=== PATIENT | female | born 1970 | race Hispanic/Latino ===

== ENCOUNTER 2016-06-28 23:02 | Emergency (ER) | payer SELFPAY ==
[2016-06-28 23:11] VITALS: BP 119/76; PULSE 86; TEMP 97.6; O2SAT 99
--- NOTE | 2016-06-29 00:24 | C.PDOC ---
History Of Present Illness The patient, a 45 y/o female, presents to the ED for evaluation of left foot pain after she sustained a fall earlier today. Patient states she accidentally tripped and fell after stepping on an uneven crack on the sidewalk and twisted her left foot. Patient states she was able to limp and go home afterwards. At home, patient attempted to elevate her leg and apply ice to the affected area but her pain persisted and she now presents to the ED for further evaluation. She denies head injury, LOC, extremity numbness/weakness. Time Seen by Provider: 06/28/16 23:24 Chief Complaint (Nursing): Lower Extremity Problem/Injury History Per: Patient History/Exam Limitations: no limitations Onset/Duration Of Symptoms: Hrs Current Symptoms Are (Timing): Still Present Additional History Per: Patient - Knee Description Of Injury: Fell, Twisted. denies: Struck With Object, Struck Against Object Past Medical History Reviewed: Historical Data, Nursing Documentation, Vital Signs Vital Signs: Last Vital Signs Temp 97.6 F 06/28/16 23:06 Pulse 86 06/28/16 23:06 Resp 20 06/29/16 00:41 BP 119/76 06/28/16 23:06 Pulse Ox 99 06/29/16 04:25 - Medical History PMH: Hypothyroidism Surgical History: No Surg Hx Family History: States: Unknown Family Hx - Social History Hx Alcohol Use: Yes Hx Substance Use: No - Immunization History Hx Influenza Vaccination: No Hx Pneumococcal Vaccination: No Review Of Systems Except As Marked, All Systems Reviewed And Found Negative. Musculoskeletal: Positive for: Foot Pain (left ) Neurological: Negative for: Weakness, Numbness, Other (no LOC, no head injury ) Physical Exam - Physical Exam Appears: Non-toxic, No Acute Distress Skin: Warm, Dry, Ecchymosis (lateral aspect of left foot ) Head: Atraumatic, Normacephalic Eye(s): bilateral: Normal Inspection, EOMI Chest: Symmetrical, No Tenderness Back: Normal Inspection, No Paraspinal Tenderness Extremity: No Normal ROM (limited secondary to pain ), No Tenderness (left ankle ), No Calf Tenderness, Capillary Refill (less than 2 seconds ), No Deformity, Swelling (lateral aspect of left foot ) Pulses: Left Dorsalis Pedis: Normal, Right Dorsalis Pedis: Normal Neurological/Psych: Oriented x3, Normal Speech, Normal Cognition Gait: Halting ED Course And Treatment O2 Sat by Pulse Oximetry: 99 (on RA) Pulse Ox Interpretation: Normal Progress Note: Left foot XR ordered. Patient received Motrin PO. Review of XR shows evidence of a nondisplaced fracture at the base of the 5th MTP. Posterior splint applied to affected area and patient was provided with crutches and instructed on use. On reassessment, patient is resting comfortably, showing no signs of distress, and reports an improvement in her pain. Patient is stable for discharge and is advised to follow up with PMD within a timely manner for further evaluation. Orthopedic Time Out: Side verified, Site verified, Patient ID confirmed Procedure: Splint Type: Short Location: Left, Leg Consent obtained: Verbal Performed by: Mid-level Provider (done by CP checked by me) Type: Closed, Non-displaced Location: Left Bone: Metatarsal Other:: Short posterior leg splint placed by CP and checked by me Disposition Counseled Patient/Family Regarding: Studies Performed, Diagnosis, Need For Followup, Rx Given - Disposition Referrals: Nuno Hoffman III, MD [Staff Provider] - Disposition: HOME/ ROUTINE Disposition Time: 00:22 Condition: STABLE Additional Instructions: Please follow up with orthopedist or satellite communications operator Leg elevation Use crutches for non weight bear Motrin for pain Return to ER if worse Instructions: Foot Fracture in Adults (ED) - Clinical Impression Clinical Impression: Metatarsal boss of left foot - PA / CORK MOLDER / Resident Statement MD/DO has reviewed & agrees with the documentation as recorded. - Scribe Statement The provider has reviewed the documentation as recorded by the Scribe (Phuong Romero) All medical record entries made by the Scribe were at my direction and personally dictated by me. I have reviewed the chart and agree that the record accurately reflects my personal performance of the history, physical exam, medical decision making, and the department course for this patient. I have also personally directed, reviewed, and agree with the discharge instructions and disposition.
[2016-06-29 00:42] VITALS: RESP 20
--- NOTE | 2016-06-29 10:03 | RAD ---
PROCEDURE: Left Foot Radiographs. HISTORY: r/o fx s/p fall COMPARISON: None. FINDINGS: BONES: Fracture base left 5th metatarsal JOINTS: Normal. SOFT TISSUES: Normal. OTHER FINDINGS: None. IMPRESSION: Fracture base left 5th metatarsal
== END 2016-06-29 00:41 | disposition home or self-care (01) ==
LOC: C.ER 23:02
DX: S92.352A Displaced fracture of fifth metatarsal bone, left foot, initial encounter for closed fracture (principal); W01.0XXA Fall on same level from slipping, tripping and stumbling without subsequent striking against object, initial encounter; Y92.480 Sidewalk as the place of occurrence of the external cause

== ENCOUNTER 2016-06-29 07:18 | Emergency (ER) | payer SELFPAY ==
--- NOTE | 2016-06-29 07:49 | C.PDOC ---
History Of Present Illness 45 y/o female that presents to the ED for evaluation of severe left foot pain. Patient was seen here last night for left foot fracture and was discharged home with a posterior splint. Patient states she felt like the splint was very tight , and reports severe pain of the area, and swelling above the left knee. She denies new injuries, fever, sensory changes. Time Seen by Provider: 06/29/16 07:22 Chief Complaint (Nursing): Lower Extremity Problem/Injury History Per: Patient History/Exam Limitations: no limitations Onset/Duration Of Symptoms: Days (1) Current Symptoms Are (Timing): Still Present Severity: Severe Recent travel outside of the [place]: No Additional History Per: Patient Past Medical History Reviewed: Historical Data, Nursing Documentation, Vital Signs Vital Signs: Last Vital Signs Temp 97.8 F 06/29/16 08:04 Pulse 68 06/29/16 08:04 Resp 16 06/29/16 08:04 BP 113/77 06/29/16 08:04 Pulse Ox 99 06/29/16 08:33 - Medical History PMH: Fractures (left foot), Hypothyroidism Family History: States: No Known Family Hx - Social History Hx Alcohol Use: Yes Hx Substance Use: No - Immunization History Hx Influenza Vaccination: No Hx Pneumococcal Vaccination: No Review Of Systems Except As Marked, All Systems Reviewed And Found Negative. Constitutional: Negative for: Fever, Chills Cardiovascular: Negative for: Chest Pain, Palpitations Respiratory: Negative for: Cough, Hemoptysis Musculoskeletal: Positive for: Leg Pain, Foot Pain (left) Neurological: Negative for: Weakness, Numbness Physical Exam - Physical Exam Appears: Well, Non-toxic, No Acute Distress Skin: Normal Color, Warm, Dry Head: Normacephalic Oral Mucosa: Moist Cardiovascular: Rhythm Regular Respiratory: Normal Breath Sounds, No Rales, No Rhonchi, No Wheezing Extremity: Normal ROM, No Calf Tenderness, Capillary Refill (< 2 sec all digits ), No Deformity, No Swelling, Other (posterior splint of left foot and ankle) Extremity: Bilateral: Normal Color And Temperature Pulses: Left Dorsalis Pedis: Normal, Right Dorsalis Pedis: Normal Neurological/Psych: Oriented x3, Normal Sensation ED Course And Treatment O2 Sat by Pulse Oximetry: 99 (on RA) Pulse Ox Interpretation: Normal Progress Note: Charlie wraps removed by nurse on patient's arrival - patient felt immediate relief of pain. Splint [facility] by myself [facility] Patient given Rx for pain medication, and instructed to follow up with orthopedics within 1 week. She understands she should return to ED if symptoms return/worsen. Reevaluation Time: 07:55 Reassessment Condition: Improved Disposition Counseled Patient/Family Regarding: Diagnosis, Need For Followup - Disposition Referrals: Nuno Hoffman III, MD [Staff Provider] - [facility] [Outside] Disposition: HOME/ ROUTINE Disposition Time: 07:55 Condition: STABLE Additional Instructions: FOLLOW UP WITH ORTHOPEDICS WITHIN 1 WEEK USE PAIN MEDICATION NEEDED ELEVATE LEG MUCH POSSIBLE RETURN TO ER IF YOU HAVE CONCERNING SYMPTOMS Prescriptions: Acetaminophen with Codeine [Tylenol with Codeine #3 Tablet] 1 each PO Q6 PRN # 12 tablet PRN Reason: pain Instructions: Splint Care (ED) Print Language: PASHTO - Clinical Impression Clinical Impression: Aftercare for cast or splint check or change - Scribe Statement The provider has reviewed the documentation as recorded by the Aravindibpanda Romero Provider Attestation: All medical record entries made by the Aravindibpanda were at my direction and personally dictated by me. I have reviewed the chart and agree that the record accurately reflects my personal performance of the history, physical exam, medical decision making, and the department course for this patient. I have also personally directed, reviewed, and agree with the discharge instructions and disposition.
[2016-06-29 08:05] VITALS: BP 113/77; PULSE 68; RESP 16; TEMP 97.8
[2016-06-29 08:18] VITALS: O2SAT 99
== END 2016-06-29 08:05 | disposition home or self-care (01) ==
LOC: C.ER 07:18
DX: Z47.89 Encounter for other orthopedic aftercare (principal)

== ENCOUNTER 2016-11-19 14:31 | Emergency (ER) | payer OTHER ==
[2016-11-19 14:46] VITALS: RESP 16
[2016-11-19] MEDS ORDERED: Sodium Chloride 0.9% 1,000 ML IV ONE (16:53)
[2016-11-19] MEDS ORDERED: Sodium Chloride 0.9% 1,000 ML ONE (17:14)
[2016-11-19 17:19] LABS: BASO # 0.1 K/uL (0.0-0.2); BASO % 0.6 % (0.0-2.0); EOS % 0.4 % (0.0-4.0); HEMATOCRIT 42.5 % (34.0-47.0); LYMPH # 3.5 K/uL (1.0-4.3); LYMPH % 31.4 % (20.0-40.0); MEAN CELL VOLUME 98.2 fL (81.0-99.0); MEAN CORPUSCULAR HEMOGLOBIN 33.3 pg (27.0-31.0); MEAN CORPUSCULAR HGB CONC 33.9 g/dL (33.0-37.0); MEAN PLATELET VOLUME 7.6 fL (7.2-11.7); MONO # 0.7 K/uL (0.0-0.8); MONO % 6.4 % (0.0-10.0); RED CELL DISTRIBUTION WIDTH 12.6 % (11.5-14.5); WHITE BLOOD COUNT 11.3 K/uL (4.8-10.8)
[2016-11-19 17:26] LABS: CHLORIDE 103 mmol/L (98-107)
[2016-11-19 17:27] LABS: POTASSIUM 3.5 mmol/L (3.6-5.2); SODIUM 140 mmol/L (132-148)
[2016-11-19 17:29] LABS: ALB/GLOB RATIO 1.7 (1.0-2.1); ALKALINE PHOSPHATASE 79 U/L (38-126); AST/SGOT 21 U/L (14-36); BILIRUBIN,TOTAL 0.9 mg/dL (0.2-1.3); BLOOD UREA NITROGEN 21 mg/dL (7-17); CARBON DIOXIDE 24 mmol/L (22-30); GFR AFRICAN-AMERICAN > 60; TOTAL PROTEIN 7.3 g/dL (6.3-8.3)
[2016-11-19 17:30] LABS: ALT/SGPT 30 U/L (9-52); CALCIUM 8.6 mg/dl (8.6-10.4); GLUCOSE,RANDOM 75 mg/dL (65-105)
[2016-11-19 17:31] LABS: RBC URINE 7 /hpf (0-3); URINE BILIRUBIN NEGATIVE (NEGATIVE); URINE BLOOD 2+ (NEGATIVE); URINE COLOR Yellow (YELLOW); URINE GLUCOSE (UA) NORMAL (Normal); URINE KETONE NEGATIVE (NEGATIVE); URINE LEUKOCYTE ESTERASE NEG Leu/uL (Negative); URINE PROTEIN NEGATIVE (NEGATIVE); URINE UROBILINOGEN NORMAL mg/dL (0.2-1.0); WBC URINE 2 /hpf (0-5)
--- NOTE | 2016-11-19 17:44 | C.PDOC ---
History Of Present Illness 46 y/o female presents to ED with complaints of nausea, vomiting and diarrhea since yesterday. Patient reports rectal bleeding and states she was constipated before she started having diarrhea with noticeable blood in stool. Patient has no PMD and visit urgent care for evaluation. Patient denies fevr, chills, urinary symptoms, back pain or any other complaints at this time. Time Seen by Provider: 11/19/16 16:43 Chief Complaint (Nursing): GI Problem History Per: Patient History/Exam Limitations: no limitations Onset/Duration Of Symptoms: Days Current Symptoms Are (Timing): Still Present Past Medical History Reviewed: Historical Data, Nursing Documentation, Vital Signs Vital Signs: Last Vital Signs Temp 97.6 F 11/19/16 14:42 Pulse 64 11/19/16 14:42 Resp 16 11/19/16 14:42 BP 137/84 11/19/16 14:42 Pulse Ox 99 11/19/16 18:27 - Medical History PMH: Fractures (left foot), Hypothyroidism Family History: States: Unknown Family Hx - Social History Hx Alcohol Use: No Hx Substance Use: No - Immunization History Hx Influenza Vaccination: No Hx Pneumococcal Vaccination: No Review Of Systems Constitutional: Negative for: Fever, Chills Cardiovascular: Negative for: Chest Pain Gastrointestinal: Positive for: Nausea, Vomiting, Abdominal Pain, Diarrhea, Hematochezia. Negative for: Constipation Genitourinary: Negative for: Dysuria, Frequency, Hematuria Musculoskeletal: Negative for: Back Pain Skin: Negative for: Rash Physical Exam - Physical Exam Appears: Non-toxic, No Acute Distress Skin: Normal Color, Warm, Dry, No Rash Head: Atraumatic, Normacephalic Eye(s): bilateral: Normal Inspection Oral Mucosa: Moist Neck: Normal ROM, Supple Chest: Symmetrical Cardiovascular: Rhythm Regular, No Murmur Respiratory: Normal Breath Sounds, No Rales, No Rhonchi, No Wheezing Gastrointestinal/Abdominal: Tenderness (to mild upper abdomen), No Guarding, No Rebound Rectal: Other (small amounts of blood tinged mucous) Neurological/Psych: Oriented x3 Gait: Steady ED Course And Treatment - Laboratory Results Result Diagrams: 11/19/16 17:12 11/19/16 17:12 Lab Interpretation: Normal O2 Sat by Pulse Oximetry: 99 (RA) Pulse Ox Interpretation: Normal Progress Note: Treated with IVF NSS and reglan IV. On re-evaluation abdomen soft non-tender. Rectal exam small amounts of bloody discharge Reassessment Condition: Improved Medical Decision Making Medical Decision Making: Plan: * Labs * Rectal Exam Disposition - Disposition Referrals: [facility] [Outside] [facility] [Outside] Disposition: HOME/ ROUTINE Disposition Time: 18:30 Condition: STABLE Additional Instructions: Return to ED if any increase symptoms Prescriptions: Dicyclomine [Bentyl] 20 mg PO Q8 PRN #10 tab PRN Reason: Diarrhea Ondansetron ODT [Zofran ODT] 1 odt PO BID PRN #6 odt PRN Reason: Nausea/Vomiting Instructions: Acute Diarrhea (ED), Rectal Bleeding (ED), Hemorrhoids (ED) Forms: [employer] (Romanian) - POA Present On Arrival: None - Clinical Impression Clinical Impression: Gastroenteritis, Diarrhea - PA / MERCHANDISE SUPPORT ASSOCIATE / Resident Statement MD/DO has reviewed & agrees with the documentation as recorded. - Scribe Statement The provider has reviewed the documentation as recorded by the Natanael Swann All medical record entries made by the Natnaael were at my direction and personally dictated by me. I have reviewed the chart and agree that the record accurately reflects my personal performance of the history, physical exam, medical decision making, and the department course for this patient. I have also personally directed, reviewed, and agree with the discharge instructions and disposition.
[2016-11-19 18:57] VITALS: BP 132/67; PULSE 68; TEMP 98.2; O2SAT 98
== END 2016-11-19 18:56 | disposition home or self-care (01) ==
LOC: C.ER 14:31
DX: K52.9 Noninfective gastroenteritis and colitis, unspecified (principal)
CPT/HCPCS: 80053; 81001; 83690; 84703; 85025; 96361; 96374; 99284; J2765; J7040